=== PATIENT | male | born 1980 | race Caucasian/White ===

== ENCOUNTER 2020-11-22 09:17 | Inpatient (IN) | payer MEDICARE, OTHER ==
[~2020-11-22] VITALS: Ht 185.4 cm; Wt 147.0 kg
[~2020-11-22 09:17] MED LIST: ASPIRIN EC81 MG PO; ATORVASTATIN CA20 MG PO; BUMETANIDE1 MG PO; CARVEDILOL3.125 MG PO; ECOTRIN81 MG PO; ENOXAPARIN30 MG/0.3 SC; FEOSOL325 MG PO; FERROUS SULFAT325 M2 PO; FLOVENT 220.1 GM/INH INH; GABAPENTIN100 MG PO; GABAPENTIN300 MG PO; HABITROL 14 MG P1 EA TOP; HUMALOG 10100 UNITS/ SC; HYDRALAZINE HCL25 MG PO; HYDRALAZINE HCL50 MG PO; IBUPROFEN600 MG PO; IMDUR ER TAB 3030 MG PO; INVANZ 1 GM VIAL1 GM IM; LANTUS INS100 UTS/M1 SC; LANTUS SOL100 UNIT/1 SQ; LANTUS100 UNIT/1 SQ; LASIX TAB 20 MG20 MG PO; LASIX40 MG PO; LEVOFLOXACIN750 MG PO; LEVOTHYROXINE25 MCG PO; METOPROLOL SUCC50 MG PO; NORCO 7.5-3251 EACH PO; NOVOLOG; NOVOLOG 10100 UNITS/ SC; NOVOLOG FL100 UNIT/1 SC; PERCOCET 5/325 T1 EA PO; PROAIR DIGIHAL90 MCG INH; ROCEPHIN 1 GM AD1 GM IV; ROXICODONE5 MG PO; SODIUM BICARBO650 M1 PO; TOPROL XL50 MG PO; VENTOLIN HFA 66.7 GM INH; ZYVOX600 MG PO
[2020-11-22 10:27] LABS: RED BLOOD COUNT 4.68 M/UL (4.20-5.50); WHITE BLOOD COUNT 7.6 K/UL (4.5-11.0)
[2020-11-22] MEDS ORDERED: LASIX20 MG PO (12:26)
[2020-11-22] MEDS ORDERED: NEURONTIN300 MG PO (12:26)
[2020-11-22] MEDS ORDERED: KLOR-CON 1010 MEQ PO (12:27)
[2020-11-22] MEDS ORDERED: HYDRALAZINE HCL25 MG PO (12:28)
[2020-11-22] MEDS ORDERED: SODIUM BICARBO650 M1 PO (12:28)
[2020-11-22] MEDS ORDERED: FERROUS SULFAT325 MG PO (12:28)
[2020-11-23 04:23] LABS: HEMOGLOBIN 11.7 gm/dl (14.0-17.5); WHITE BLOOD COUNT 5.9 K/UL (4.5-11.0)
[2020-11-23 04:24] LABS: RED BLOOD COUNT 4.18 M/UL (4.20-5.50)
[2020-11-24 06:50] LABS: HEMOGLOBIN 11.4 gm/dl (14.0-17.5); RED BLOOD COUNT 4.08 M/UL (4.20-5.50); WHITE BLOOD COUNT 5.7 K/UL (4.5-11.0)
[2020-11-28] MEDS ORDERED: BUMETANIDE1 MG PO (09:31)
[2020-11-28] MEDS ORDERED: ASPIRIN EC81 MG PO (09:31)
== END 2020-11-28 16:14 | disposition home or self-care (01) | DRG 291 ==
LOC: ER1 09:17 → ZEROF 11:25 → M/S 11-23 19:25
PROVIDERS: Emergency Medicine; Internal Medicine Nephrology; Physician Assistant; ADMIT Internal Medicine
DX: I13.0 Hypertensive heart and chronic kidney disease with heart failure and stage 1 through stage 4 chronic kidney disease, or unspecified chronic kidney disease (principal); I50.23 Acute on chronic systolic (congestive) heart failure; J96.01 Acute respiratory failure with hypoxia; N04.9 Nephrotic syndrome with unspecified morphologic changes; N18.4 Chronic kidney disease, stage 4 (severe); Z20.828 Contact with and (suspected) exposure to other viral communicable diseases; E11.22 Type 2 diabetes mellitus with diabetic chronic kidney disease; I42.8 Other cardiomyopathies; Z91.14 Patient's other noncompliance with medication regimen; R60.1 Generalized edema; I27.20 Pulmonary hypertension, unspecified; E03.9 Hypothyroidism, unspecified; B19.20 Unspecified viral hepatitis C without hepatic coma
CPT/HCPCS: 36415; 36600; 71045; 80048; 80053; 82550; 82553; 82803; 82962; 83605; 83874; 83880; 84439; 84443; 84484; 85025; 87040; 90471; 93005; 94640; 94760; 96374; 96375; 96376; 99285; J0692; J1205; J1644; J1940; U0002

== ENCOUNTER 2021-01-02 20:01 | Inpatient (IN) | payer MEDICARE, OTHER ==
[~2021-01-02] VITALS: Ht 185 cm; Wt 158.4 kg
[~2021-01-02 20:01] MED LIST changes: +FERROUS SULFAT325 MG PO; +KLOR-CON 1010 MEQ PO; +LASIX20 MG PO; +NEURONTIN300 MG PO
[2021-01-02 20:43] LABS: RED BLOOD COUNT 4.28 M/UL (4.20-5.50); WHITE BLOOD COUNT 7.2 K/UL (4.5-11.0)
[2021-01-02] MEDS ORDERED: SERTRALINE HCL50 MG PO (23:10)
[2021-01-09 07:14] LABS: HEMOGLOBIN 10.6 gm/dl (14.0-17.5); RED BLOOD COUNT 3.9 M/UL (4.20-5.50); WHITE BLOOD COUNT 6.3 K/UL (4.5-11.0)
[2021-01-10 03:38] LABS: HEMOGLOBIN 10.7 gm/dl (14.0-17.5); RED BLOOD COUNT 3.72 M/UL (4.20-5.50); WHITE BLOOD COUNT 6.1 K/UL (4.5-11.0)
[2021-01-11 04:19] LABS: HEMOGLOBIN 10.3 gm/dl (14.0-17.5); RED BLOOD COUNT 3.69 M/UL (4.20-5.50); WHITE BLOOD COUNT 5.9 K/UL (4.5-11.0)
[2021-01-13 03:26] LABS: HEMOGLOBIN 10.7 gm/dl (14.0-17.5); RED BLOOD COUNT 3.88 M/UL (4.20-5.50); WHITE BLOOD COUNT 5.6 K/UL (4.5-11.0)
[2021-01-15 05:57] LABS: HEMOGLOBIN 10.3 gm/dl (14.0-17.5); RED BLOOD COUNT 3.7 M/UL (4.20-5.50); WHITE BLOOD COUNT 5.6 K/UL (4.5-11.0)
[2021-01-16 04:47] LABS: HEMOGLOBIN 10.7 gm/dl (14.0-17.5); RED BLOOD COUNT 3.85 M/UL (4.20-5.50); WHITE BLOOD COUNT 5.9 K/UL (4.5-11.0)
[2021-01-16] MEDS ORDERED: BUMETANIDE1 MG PO ×2 (14:44→14:48)
[2021-01-16] MEDS ORDERED: METOPROLOL SUCC25 MG PO (14:44)
--- NOTE | 2021-01-16 15:52 | NUR ---
PATIENT REFUSED HOME HEALTH SERVICES. DR. VELA WAS IN THE ROOM WHEN PATIENT STATED THE ABOVE. PATIENT AND FAMILY WILL PERFORM WOUND CARE. PATIENT AND FAMILY HAS BEEN PERFORMING THE WOUND CARE PRIOR TO ADMISSION.
--- NOTE | 2021-01-16 17:48 | NUR ---
PATIENT HAD ROMERO CATHETER AND WILL GO HOME WITH IT. PATIENT STATED HE HAD AN APPT TO SEE UROLOGIST
== END 2021-01-16 17:40 | disposition home health service (06) | DRG 264 ==
LOC: ER1 20:01 → MED SURG 4 21:30 → CDU 21:30 → MED SURG 4 22:52
PROVIDERS: Family Medicine; Internal Medicine; Internal Medicine Infectious Disease; Internal Medicine Nephrology; Physician Assistant; ADMIT Internal Medicine
PROC: 0JBR0ZZ Excision of Left Foot Subcutaneous Tissue and Fascia, Open Approach (ICD-10-PCS; principal; 2021-01-04)
PROC: 0JBR0ZZ Excision of Left Foot Subcutaneous Tissue and Fascia, Open Approach (ICD-10-PCS; 2021-01-04)
PROC: 0H9NXZZ Drainage of Left Foot Skin, External Approach (ICD-10-PCS; 2021-01-04)
PROC: 0H9MXZZ Drainage of Right Foot Skin, External Approach (ICD-10-PCS; 2021-01-04)
PROC: 0HDRXZZ Extraction of Toe Nail, External Approach (ICD-10-PCS; 2021-01-10)
PROC: 0HBRXZZ Excision of Toe Nail, External Approach (ICD-10-PCS; 2021-01-10)
PROC: 0HBRXZZ Excision of Toe Nail, External Approach (ICD-10-PCS; 2021-01-10)
PROC: 0HBRXZZ Excision of Toe Nail, External Approach (ICD-10-PCS; 2021-01-10)
PROC: 0HBRXZZ Excision of Toe Nail, External Approach (ICD-10-PCS; 2021-01-10)
PROC: 0HBRXZZ Excision of Toe Nail, External Approach (ICD-10-PCS; 2021-01-10)
PROC: 0H9NXZZ Drainage of Left Foot Skin, External Approach (ICD-10-PCS; 2021-01-10)
DX: I13.0 Hypertensive heart and chronic kidney disease with heart failure and stage 1 through stage 4 chronic kidney disease, or unspecified chronic kidney disease (principal); I50.23 Acute on chronic systolic (congestive) heart failure; E11.52 Type 2 diabetes mellitus with diabetic peripheral angiopathy with gangrene; N18.4 Chronic kidney disease, stage 4 (severe); N17.9 Acute kidney failure, unspecified; Z68.42 Body mass index [BMI] 45.0-49.9, adult; I96 Gangrene, not elsewhere classified; J96.11 Chronic respiratory failure with hypoxia; Z20.822 Contact with and (suspected) exposure to COVID-19; E11.22 Type 2 diabetes mellitus with diabetic chronic kidney disease; R33.9 Retention of urine, unspecified; E11.21 Type 2 diabetes mellitus with diabetic nephropathy; I27.20 Pulmonary hypertension, unspecified; I36.1 Nonrheumatic tricuspid (valve) insufficiency; I42.8 Other cardiomyopathies; I44.7 Left bundle-branch block, unspecified; E78.5 Hyperlipidemia, unspecified; E03.9 Hypothyroidism, unspecified; E11.610 Type 2 diabetes mellitus with diabetic neuropathic arthropathy; B35.1 Tinea unguium; D50.9 Iron deficiency anemia, unspecified; L60.8 Other nail disorders; I89.0 Lymphedema, not elsewhere classified; E66.9 Obesity, unspecified; Z89.422 Acquired absence of other left toe(s); Z91.19 Patient's noncompliance with other medical treatment and regimen; Z86.19 Personal history of other infectious and parasitic diseases; Z88.0 Allergy status to penicillin; Z83.3 Family history of diabetes mellitus; Z87.891 Personal history of nicotine dependence; Z79.82 Long term (current) use of aspirin; Z79.4 Long term (current) use of insulin; Z79.899 Other long term (current) drug therapy
CPT/HCPCS: 36415; 51702; 71045; 73630; 80048; 80053; 82550; 82553; 82728; 82803; 82962; 83540; 83550; 83874; 83880; 84484; 85025; 85610; 93005; 94760; 96374; 99285; J1250; J1644; J1756; J1940; U0002

== ENCOUNTER → 2021-02-22 | Outpatient (CLI) | payer MEDICARE, OTHER ==
[~2021-02-22] MED LIST changes: +ALDACTONE 25MG25 MG PO; +CHRONULAC20 GM/30 M PO; +COZAAR 25MG TAB25 MG PO; +GABAPENTIN600 MG PO; +IPRAT-ALBUT 0.5-3 ML NEB; +LISINOPRIL10 MG PO; +LOPRESSOR 25 MG25 MG PO; +METOPROLOL SUCC25 MG PO; +SERTRALINE HCL50 MG PO; +SILVADENE20 GM TOP; +VITAMIN D21250 MCG PO; +ZAROXOLYN/DIULO5 MG PO
== END ==
LOC: KOH-I 15:42
DX: M14.672 Charcot's joint, left ankle and foot (principal); R60.9 Edema, unspecified; M25.872 Other specified joint disorders, left ankle and foot; Z89.422 Acquired absence of other left toe(s)
CPT/HCPCS: 73700

== ENCOUNTER 2021-03-01 21:34 | Inpatient (IN) | payer MEDICARE, OTHER ==
[~2021-03-01] VITALS: Ht 185.4 cm; Wt 160.6 kg
[~2021-03-01 21:34] MED LIST changes: -ALDACTONE 25MG25 MG PO; -CHRONULAC20 GM/30 M PO; -COZAAR 25MG TAB25 MG PO; -GABAPENTIN600 MG PO; -IPRAT-ALBUT 0.5-3 ML NEB; -LISINOPRIL10 MG PO; -LOPRESSOR 25 MG25 MG PO; -SILVADENE20 GM TOP; -VITAMIN D21250 MCG PO; -ZAROXOLYN/DIULO5 MG PO
[2021-03-01 22:47] LABS: HEMOGLOBIN 12.5 gm/dl (14.0-17.5); RED BLOOD COUNT 4.27 M/UL (4.20-5.50); WHITE BLOOD COUNT 7.7 K/UL (4.5-11.0)
--- NOTE | 2021-03-03 03:43 | NUR ---
2000: ATTEMPTED TO PLACE ROMERO CATHETER WITH MARIA DEL CARMEN GREGORIO RN. ATTEMPT WAS UNSUCESSFUL. I REASSURED THE PATIENT I WOULD TRY TO BRING SOME HELP IN LATER SO WE COULD TRY TO PLACE A ROMERO CATHETER. 0130: HILDA BELTRAN RN, RESOURCE NURSE, ASKED THE PATIENT IF SHE COULD TRY TO PLACE A ROMERO CATHETER. PATIENT REFUSED AND SAID HE DID NOT WANT US TO ATTEMPT AGAIN. EDUCATED PATIENT ON THE NEED FOR A ROMERO CATHETER SO WE CAN ACCURATELY MEASURE HIS OUTPUT. PATIENT STILL SAID NO TO HAVING A CATHETER INSERTED AT THIS TIME.
[2021-03-03 05:31] LABS: HEMOGLOBIN 11.7 gm/dl (14.0-17.5); RED BLOOD COUNT 4.13 M/UL (4.20-5.50)
[2021-03-03 05:43] LABS: WHITE BLOOD COUNT 5.7 K/UL (4.5-11.0)
[2021-03-05 07:07] LABS: HEMOGLOBIN 11.9 gm/dl (14.0-17.5); RED BLOOD COUNT 4.15 M/UL (4.20-5.50); WHITE BLOOD COUNT 5.7 K/UL (4.5-11.0)
[2021-03-06 03:15] LABS: RED BLOOD COUNT 4.18 M/UL (4.20-5.50); WHITE BLOOD COUNT 6.9 K/UL (4.5-11.0)
[2021-03-07] MEDS ORDERED: SILVADENE20 GM TOP (12:39)
[2021-03-07] MEDS ORDERED: BUMETANIDE1 MG PO (12:39)
[2021-03-07] MEDS ORDERED: ALDACTONE 25MG25 MG PO (12:39)
[2021-03-07] MEDS ORDERED: ZAROXOLYN/DIULO5 MG PO (12:39)
[2021-03-07] MEDS ORDERED: METOPROLOL SUCC25 MG PO (12:39)
== END 2021-03-07 15:23 | disposition home or self-care (01) | DRG 291 ==
LOC: ER1 21:34 → MED SURG 4 03-02 00:09 → CDU 03-02 00:09 → MED SURG 4 03-02 15:10
PROVIDERS: Emergency Medicine; Internal Medicine; Internal Medicine Nephrology; Physician Assistant; ADMIT Internal Medicine
PROC: B24BZZZ Ultrasonography of Heart with Aorta (ICD-10-PCS; principal; 2021-03-02)
DX: I13.0 Hypertensive heart and chronic kidney disease with heart failure and stage 1 through stage 4 chronic kidney disease, or unspecified chronic kidney disease (principal); I50.23 Acute on chronic systolic (congestive) heart failure; J96.01 Acute respiratory failure with hypoxia; N18.4 Chronic kidney disease, stage 4 (severe); L97.819 Non-pressure chronic ulcer of other part of right lower leg with unspecified severity; N17.9 Acute kidney failure, unspecified; L97.829 Non-pressure chronic ulcer of other part of left lower leg with unspecified severity; I42.8 Other cardiomyopathies; E66.01 Morbid (severe) obesity due to excess calories; I89.0 Lymphedema, not elsewhere classified; I83.018 Varicose veins of right lower extremity with ulcer other part of lower leg; I83.028 Varicose veins of left lower extremity with ulcer other part of lower leg; E03.9 Hypothyroidism, unspecified; E11.621 Type 2 diabetes mellitus with foot ulcer; E11.649 Type 2 diabetes mellitus with hypoglycemia without coma; E78.5 Hyperlipidemia, unspecified; I44.7 Left bundle-branch block, unspecified; Z20.822 Contact with and (suspected) exposure to COVID-19; D64.9 Anemia, unspecified; Z98.890 Other specified postprocedural states; Z87.891 Personal history of nicotine dependence; Z74.01 Bed confinement status; Z88.0 Allergy status to penicillin; Z91.14 Patient's other noncompliance with medication regimen; Z68.39 Body mass index [BMI] 39.0-39.9, adult; Z79.82 Long term (current) use of aspirin; Z79.4 Long term (current) use of insulin; Z79.899 Other long term (current) drug therapy; Z82.49 Family history of ischemic heart disease and other diseases of the circulatory system
CPT/HCPCS: ECHO; 36415; 71045; 72128; 72131; 73560; 80048; 80053; 82436; 82550; 82553; 82570; 82962; 83540; 83550; 83605; 83690; 83735; 83874; 83880; 84100; 84133; 84156; 84300; 84484; 85025; 85610; 85730; 86140; 87040; 87070; 87077; 87186; 87205; 93005; 93306; 93970; 94760; 96372; 96374; 99285; A6212; J1644; J1940; J2270; U0002

== ENCOUNTER 2021-05-02 16:35 | Inpatient (IN) | payer MEDICARE, OTHER ==
[~2021-05-02] VITALS: Ht 185.4 cm; Wt 158.2 kg
[~2021-05-02 16:35] MED LIST changes: +ALDACTONE 25MG25 MG PO; +SILVADENE20 GM TOP; +ZAROXOLYN/DIULO5 MG PO
[2021-05-02 18:02] LABS: HEMOGLOBIN 12.4 gm/dl (14.0-17.5); RED BLOOD COUNT 4.41 M/UL (4.20-5.50); WHITE BLOOD COUNT 7.3 K/UL (4.5-11.0)
--- NOTE | 2021-05-03 01:05 | NUR ---
RECEIVED FROM ER VIA STRETCHER. PT ON BIPAP , EYES CLOSED , NO VERBAL RESPONSE. MOVES ALL EXTREMITIES. LETHARGIC . NO S/S DISCOMFORT OR DISTRESS AT THIS TIME.
[2021-05-03 06:49] LABS: HEMOGLOBIN 13.4 gm/dl (14.0-17.5); RED BLOOD COUNT 4.53 M/UL (4.20-5.50); WHITE BLOOD COUNT 8.7 K/UL (4.5-11.0)
[2021-05-04 04:34] LABS: HEMOGLOBIN 10.8 gm/dl (14.0-17.5); RED BLOOD COUNT 3.77 M/UL (4.20-5.50); WHITE BLOOD COUNT 5.8 K/UL (4.5-11.0)
[2021-05-05 05:22] LABS: HEMOGLOBIN 10.8 gm/dl (14.0-17.5); RED BLOOD COUNT 3.69 M/UL (4.20-5.50)
[2021-05-06 03:05] LABS: HEMOGLOBIN 11.4 gm/dl (14.0-17.5); RED BLOOD COUNT 3.94 M/UL (4.20-5.50); WHITE BLOOD COUNT 6.1 K/UL (4.5-11.0)
[2021-05-07 04:50] LABS: HEMOGLOBIN 11.9 gm/dl (14.0-17.5); RED BLOOD COUNT 4.1 M/UL (4.20-5.50); WHITE BLOOD COUNT 7.1 K/UL (4.5-11.0)
[2021-05-08 03:36] LABS: HEMOGLOBIN 11.9 gm/dl (14.0-17.5); RED BLOOD COUNT 4.15 M/UL (4.20-5.50); WHITE BLOOD COUNT 6.4 K/UL (4.5-11.0)
[2021-05-08 03:43] LABS: URINE CREATININE 88.4 mg/dL
[2021-05-09 08:14] LABS: HBSAG SCREEN Negative (Negative); HEP A AB, IGM Negative (Negative); HEP B CORE AB, IGM Negative (Negative); HEP C VIRUS AB >11.0 (0.0-0.9)
[2021-05-09 09:42] LABS: HEMOGLOBIN 12.1 gm/dl (14.0-17.5); RED BLOOD COUNT 4.14 M/UL (4.20-5.50); WHITE BLOOD COUNT 6.4 K/UL (4.5-11.0)
[2021-05-10 04:47] LABS: HEMOGLOBIN 11.8 gm/dl (14.0-17.5); RED BLOOD COUNT 4.06 M/UL (4.20-5.50); WHITE BLOOD COUNT 6.7 K/UL (4.5-11.0)
[2021-05-13 06:12] LABS: HEMOGLOBIN 11.4 gm/dl (14.0-17.5); RED BLOOD COUNT 3.94 M/UL (4.20-5.50); WHITE BLOOD COUNT 6.4 K/UL (4.5-11.0)
[2021-05-15 03:29] LABS: HEMOGLOBIN 11.2 gm/dl (14.0-17.5); RED BLOOD COUNT 3.87 M/UL (4.20-5.50); WHITE BLOOD COUNT 5.4 K/UL (4.5-11.0)
[2021-05-17 03:19] LABS: HEMOGLOBIN 10.5 gm/dl (14.0-17.5); RED BLOOD COUNT 3.61 M/UL (4.20-5.50); WHITE BLOOD COUNT 5.4 K/UL (4.5-11.0)
--- NOTE | 2021-05-18 01:54 | NUR ---
PT REFUSED TO BE WOKEN FOR 0200 VS ON 05/17/21 AND 05/18/21.
[2021-05-18 05:43] LABS: HEMOGLOBIN 10.8 gm/dl (14.0-17.5); RED BLOOD COUNT 3.74 M/UL (4.20-5.50); WHITE BLOOD COUNT 4.5 K/UL (4.5-11.0)
[2021-05-19 05:58] LABS: HEMOGLOBIN 10.6 gm/dl (14.0-17.5); RED BLOOD COUNT 3.72 M/UL (4.20-5.50); WHITE BLOOD COUNT 4.6 K/UL (4.5-11.0)
[2021-05-19] MEDS ORDERED: LOPRESSOR 25 MG25 MG PO (15:17)
[2021-05-19] MEDS ORDERED: CHRONULAC20 GM/30 M PO (15:17)
[2021-05-19] MEDS ORDERED: COZAAR 25MG TAB25 MG PO (15:17)
[2021-05-19] MEDS ORDERED: IPRAT-ALBUT 0.5-3 ML NEB (15:17)
[2021-05-19] MEDS ORDERED: GABAPENTIN300 MG PO (15:17)
== END 2021-05-19 15:59 | disposition home health service (06) | DRG 673 ==
LOC: ER1 16:35 → PROG CARE 21:07 → CDU 21:07 → M/S 21:07 → CCU 21:07 → PROG CARE 05-05 17:29 → M/S 05-11 00:33
PROVIDERS: Internal Medicine; Internal Medicine Nephrology; Physician Assistant; Surgery; ADMIT Internal Medicine
PROC: 5A09457 Assistance with Respiratory Ventilation, 24-96 Consecutive Hours, Continuous Positive Airway Pressure (ICD-10-PCS; 2021-05-03)
PROC: 02HV33Z Insertion of Infusion Device into Superior Vena Cava, Percutaneous Approach (ICD-10-PCS; 2021-05-09)
PROC: B548ZZA Ultrasonography of Superior Vena Cava, Guidance (ICD-10-PCS; 2021-05-09)
PROC: 0JHD0XZ Insertion of Tunneled Vascular Access Device into Right Upper Arm Subcutaneous Tissue and Fascia, Open Approach (ICD-10-PCS; principal; 2021-05-09 11:26)
DX: N17.9 Acute kidney failure, unspecified (principal); J96.22 Acute and chronic respiratory failure with hypercapnia; I50.23 Acute on chronic systolic (congestive) heart failure; G93.41 Metabolic encephalopathy; J96.21 Acute and chronic respiratory failure with hypoxia; J18.9 Pneumonia, unspecified organism; R53.2 Functional quadriplegia; I13.0 Hypertensive heart and chronic kidney disease with heart failure and stage 1 through stage 4 chronic kidney disease, or unspecified chronic kidney disease; E87.2 Acidosis; A52.16 Charcot's arthropathy (tabetic); E66.2 Morbid (severe) obesity with alveolar hypoventilation; I42.0 Dilated cardiomyopathy; Z20.822 Contact with and (suspected) exposure to COVID-19; N18.4 Chronic kidney disease, stage 4 (severe); E11.22 Type 2 diabetes mellitus with diabetic chronic kidney disease; F17.210 Nicotine dependence, cigarettes, uncomplicated; E88.09 Other disorders of plasma-protein metabolism, not elsewhere classified; D64.9 Anemia, unspecified; I89.0 Lymphedema, not elsewhere classified; I44.7 Left bundle-branch block, unspecified; I27.20 Pulmonary hypertension, unspecified; E03.9 Hypothyroidism, unspecified; E11.21 Type 2 diabetes mellitus with diabetic nephropathy; B19.20 Unspecified viral hepatitis C without hepatic coma; I87.2 Venous insufficiency (chronic) (peripheral); Z91.14 Patient's other noncompliance with medication regimen; Z89.422 Acquired absence of other left toe(s); Z82.49 Family history of ischemic heart disease and other diseases of the circulatory system; Z83.3 Family history of diabetes mellitus; Z88.0 Allergy status to penicillin; Z68.39 Body mass index [BMI] 39.0-39.9, adult; Z74.01 Bed confinement status
CPT/HCPCS: 36415; 36600; 71045; 73000; 77001; 80048; 80053; 80074; 80307; 82140; 82550; 82553; 82565; 82570; 82575; 82803; 82962; 83540; 83550; 83735; 83880; 84100; 84156; 84484; 85025; 85027; 86140; 90935; 90937; 93005; 94640; 94660; 94664; 94760; 96374; 97110; 97162; 97166; 97530-GP-CQ; 99285; C1750; C1752; C1769; C1788; G0378; J0690; J1205; J1265; J1642; J1644; J1756; J1940; J2060; J2405; J3010; J7040; J7120; P9047; U0002

== ENCOUNTER 2021-06-01 15:06 | Inpatient (IN) | payer MEDICARE, OTHER ==
[~2021-06-01] VITALS: Ht 185.4 cm; Wt 138.8 kg
[~2021-06-01 15:06] MED LIST changes: +CHRONULAC20 GM/30 M PO; +COZAAR 25MG TAB25 MG PO; +IPRAT-ALBUT 0.5-3 ML NEB; +LOPRESSOR 25 MG25 MG PO
[2021-06-01] MEDS ORDERED: GABAPENTIN600 MG PO (17:30)
[2021-06-01] MEDS ORDERED: VITAMIN D21250 MCG PO (17:32)
[2021-06-01 17:45] LABS: HEMOGLOBIN 9.9 gm/dl (14.0-17.5); RED BLOOD COUNT 3.42 M/UL (4.20-5.50); WHITE BLOOD COUNT 4.5 K/UL (4.5-11.0)
[2021-06-03] MEDS ORDERED: LISINOPRIL10 MG PO (14:57)
[2021-06-03] MEDS ORDERED: LEVOFLOXACIN750 MG PO (14:57)
== END 2021-06-03 17:14 | disposition home health service (06) | DRG 264 ==
LOC: M/S 15:37
PROVIDERS: Podiatrist Foot & Ankle Surgery; ADMIT Internal Medicine
PROC: 0JQR0ZZ Repair Left Foot Subcutaneous Tissue and Fascia, Open Approach (ICD-10-PCS; 2021-06-02)
PROC: 0LQW0ZZ Repair Left Foot Tendon, Open Approach (ICD-10-PCS; 2021-06-02)
PROC: 5A1D70Z Performance of Urinary Filtration, Intermittent, Less than 6 Hours Per Day (ICD-10-PCS; 2021-06-02)
PROC: 0JBR0ZZ Excision of Left Foot Subcutaneous Tissue and Fascia, Open Approach (ICD-10-PCS; principal; 2021-06-02 17:30)
DX: E11.51 Type 2 diabetes mellitus with diabetic peripheral angiopathy without gangrene (principal); N18.6 End stage renal disease; L97.429 Non-pressure chronic ulcer of left heel and midfoot with unspecified severity; L97.428 Non-pressure chronic ulcer of left heel and midfoot with other specified severity; Z68.41 Body mass index [BMI] 40.0-44.9, adult; I13.11 Hypertensive heart and chronic kidney disease without heart failure, with stage 5 chronic kidney disease, or end stage renal disease; I42.8 Other cardiomyopathies; I50.22 Chronic systolic (congestive) heart failure; E11.621 Type 2 diabetes mellitus with foot ulcer; I87.8 Other specified disorders of veins; L97.529 Non-pressure chronic ulcer of other part of left foot with unspecified severity; E11.40 Type 2 diabetes mellitus with diabetic neuropathy, unspecified; E66.01 Morbid (severe) obesity due to excess calories; E11.22 Type 2 diabetes mellitus with diabetic chronic kidney disease; I89.0 Lymphedema, not elsewhere classified; I44.7 Left bundle-branch block, unspecified; K74.60 Unspecified cirrhosis of liver; E78.5 Hyperlipidemia, unspecified; E03.9 Hypothyroidism, unspecified; I27.20 Pulmonary hypertension, unspecified; E11.65 Type 2 diabetes mellitus with hyperglycemia; Z20.822 Contact with and (suspected) exposure to COVID-19; E11.21 Type 2 diabetes mellitus with diabetic nephropathy; Z89.422 Acquired absence of other left toe(s); Z88.0 Allergy status to penicillin; Z86.19 Personal history of other infectious and parasitic diseases; Z82.49 Family history of ischemic heart disease and other diseases of the circulatory system; Z79.4 Long term (current) use of insulin; Z91.14 Patient's other noncompliance with medication regimen; Z87.891 Personal history of nicotine dependence
CPT/HCPCS: 71045; 80048; 82962; 85025; 85610; 85730; 90935; 93005; 93925; 94664; 94760; J1644; J1956; J2795; J3370; J7120; Q4133; U0002

== ENCOUNTER → 2022-07-10 | Outpatient (CLI) | payer MEDICARE, OTHER ==
[~2022-07-10] MED LIST changes: +GABAPENTIN600 MG PO; +LISINOPRIL10 MG PO; +VITAMIN D21250 MCG PO
== END ==
LOC: KOH-I 15:32
DX: M25.551 Pain in right hip (principal)
CPT/HCPCS: 73502